=== PATIENT | male | born 1995 | race Caucasian/White ===

== ENCOUNTER 2017-04-17 14:15 | Emergency (ER) | payer OTHER ==
[~2017-04-17] VITALS: Ht 182.9 cm; Wt 72.6 kg
[~2017-04-17 14:15] MED LIST: ALPR.5 PO; ATOM60; AZEL.05OP OS; Bactrim Ds Tab1 EACH PO; CEPH500 PO; CLIN300 PO; CLOT1TC TOP; CYCL10 PO; ERYT.5TO LEFTEYE; HYDACE5 PO; IBUP800 PO; LIDO2L PO; NAPR500 PO; RISP.25; SERT50 PO; SULF10OPSA OS; TRAZ50 PO; Zantac150 MG PO; Zofran Odt4 MG SL
[2017-04-17] MEDS ORDERED: Permethrin60 GM TOP (15:32)
[2017-04-17 15:41] LABS: Specimen Source URINE
[2017-04-18 12:28] LABS: Source Urine
[2017-04-21 17:54] LABS: HSV II IgG Type Specific Ab Positive (NEG); Herpes Simplex IgM Antibody Positive (NEG)
== END 2017-04-17 15:38 | disposition home or self-care (01) ==
LOC: ER 14:15
PROVIDERS: Nurse Practitioner Family
DX: A64 Unspecified sexually transmitted disease (principal); F17.200 Nicotine dependence, unspecified, uncomplicated
CPT/HCPCS: 36415; 86592; 86694; 86695; 86696; 87491; 87591; 96372; 99283; J0696